=== PATIENT | male | born 1935 | race Caucasian/White ===

== ENCOUNTER 2016-12-06 20:03 | Inpatient (IN) | payer OTHER, BC ==
[~2016-12-06] VITALS: Ht 177.8 cm; Wt 102.5 kg
[~2016-12-06 20:03] MED LIST: ADULT LOW DOSE81 M1 PO; ASPIR 8181 M1 PO; ASPIR-LOW81 MG PO; ASPIRIN81 M2 PO; BENGAY GREASEL113 GM TP; BETIMOL 0.100 DROP/5 RIGHT EYE; CYCLOBENZAPRINE5 MG PO; DEPAKOTE250 MG PO; DESYREL 150 MG150 MG PO; DICLOFENAC SODI50 MG PO; FLEXERIL5 MG PO; GOLD BOND BODY226 GM TP; GOLD BOND MEDI113 GM TP; HYTRIN2 MG PO; LASIX20 MG PO; LIDOCAINE700 MG TD; MIRALAX17 GM PO; MIRALAX255 GM PO; MIRTAZAPINE15 MG PO; MUSCLE RUB CREA85 GM TP; NEURONTIN300 MG PO; PAIN & FEVER500 MG PO; POLYETHYLENE GL17 GM PO; PRILOSEC20 MG PO; REMERON15 M2 PO; ROXICODONE5 MG PO; SENNA PLUS TAB1 EACH PO; SENOKOT S,PE1 TABLET PO; TIMOPTIC-0100 DROP/1 RIGHT EYE; TRAZODONE HCL150 MG PO; TYLENOL EXTRA500 MG PO; VITAMIN D-32000 UNI1 PO; VITAMIN D32000 UNI1 PO; VITAMIN D32000 UNIT PO; VOLTAREN50 MG PO; ZOCOR40 MG PO
[2016-12-06 23:05] LABS: HEMATOCRIT 41.7 % (38.0-50.0); MCHC 33.3 G/DL (30.0-36.0); MCV 93.1 FL (86-99); MEAN PLAT.VOLUME 9.8 uM^3 (9.0-12.4); PLATELET COUNT 223 K/uL (156-360); RBC DIS.WIDTH-CV 12.6 % (11.8-14.6); RBC DIS.WIDTH-SD 43.3 % (39-53); RED BLOOD COUNT 4.48 M/uL (4.00-5.50); WHITE BLOOD COUNT 15.1 K/uL (4.1-10.2)
[2016-12-06 23:14] LABS: CHLORIDE 98 mEq/L (99-109); POTASSIUM 4.7 mEq/L (3.7-5.4); SODIUM 135 mEq/L (136-147)
[2016-12-06 23:16] LABS: GLUCOSE 106 mg/dL (70-99)
[2016-12-06 23:17] LABS: ANION GAP 12 MEQ/L (2-14)
[2016-12-06 23:20] LABS: GFR ESTIMATE (CALCULATED) > 59 mL/min/
[2016-12-06 23:21] LABS: UREA NITROGEN (BUN) 21 mg/dL (9-23)
[2016-12-06 23:24] LABS: ADD MIUA? YES; BILIRUBIN NEGATIVE; BLOOD MODERATE; COLOR YELLOW ((YELLOW)); GLUCOSE (STRIP) NEGATIVE; KETONES 20; LEUKOCYTES LARGE; NITRITE NEGATIVE; PROTEIN (STRIP) 100; SPECIFIC GRAVITY 1.028 (1.000-1.030)
[2016-12-06 23:31] LABS: BACTERIA NONE SEEN /HPF; EPITHELIAL CELLS RARE /HPF; MUCUS TRACE /LPF; RED BLOOD CELLS TNTC /HPF (0-5); UCUL ADDED? YES; WHITE BLOOD CELLS TNTC /HPF (0-5)
[2016-12-06 23:51] LABS: TROP-I INTERPRETATION NEGATIVE; TROPONIN-I < 0.01 ng/mL (0.0-0.30)
[2016-12-07] MEDS ORDERED: VANTIN100 MG PO (00:10)
[2016-12-07] MEDS ORDERED: DULOXETINE HCL60 MG PO (03:25)
[2016-12-07] MEDS ORDERED: GEMFIBROZIL600 MG PO (03:26)
[2016-12-07] MEDS ORDERED: MIRALAX17 GM PO (03:27)
[2016-12-07] MEDS ORDERED: MELATONIN1 MG PO (03:27)
[2016-12-07] MEDS ORDERED: PRILOSEC20 MG PO (03:27)
[2016-12-07] MEDS ORDERED: TERAZOSIN HCL1 MG PO (03:28)
[2016-12-07 03:32] LABS: EOSINOPHIL (%) 0.2 % (0-5); IMMATURE GRANULOCYTE (%) 0.3 % (0.0-0.7); LYMPHOCYTE COUNT 2.5 K/uL (1.0-2.8); MONOCYTE (%) 9.3 % (3-12); MONOCYTE COUNT 1.4 K/uL (0-0.8); NEUTROPHIL (%) 73.6 % (45-76); NEUTROPHIL COUNT 11.3 K/uL (1.8-6.4)
[2016-12-07 05:29] VITALS: BP 139/78
[2016-12-07 07:26] VITALS: BP 121/58
[2016-12-07] MEDS ORDERED: TYLENOL REGULA325 MG PO (14:20)
[2016-12-07] MEDS ORDERED: DEPAKOTE250 MG PO (14:21)
[2016-12-07] MEDS ORDERED: CALMOSEPTINE O120 GM TP (14:30)
[2016-12-07] MEDS ORDERED: GOLD BOND MEDI283 G1 TP (14:32)
[2016-12-07 15:00] VITALS: BP 124/68
[2016-12-07 17:56] VITALS: BP 163/76
[2016-12-07 18:24] VITALS: BP 163/76
[2016-12-07 22:32] VITALS: BP 128/58
[2016-12-08 06:29] LABS: EOSINOPHIL (%) 0.5 % (0-5); EOSINOPHIL COUNT 0.1 K/uL (0-0.3); HEMATOCRIT 41.8 % (38.0-50.0); IMMATURE GRANULOCYTE (%) 0.4 % (0.0-0.7); IMMATURE GRANULOCYTE COUNT 0.1 K/uL; LYMPHOCYTE COUNT 1.6 K/uL (1.0-2.8); MCH 30.6 PG (29.0-34.0); MCHC 32.8 G/DL (30.0-36.0); MCV 93.3 FL (86-99); MEAN PLAT.VOLUME 10.1 uM^3 (9.0-12.4); MONOCYTE (%) 9.1 % (3-12); MONOCYTE COUNT 1.3 K/uL (0-0.8); NEUTROPHIL (%) 78.4 % (45-76); PLATELET COUNT 216 K/uL (156-360); RBC DIS.WIDTH-CV 12.8 % (11.8-14.6); RBC DIS.WIDTH-SD 43.8 % (39-53); RED BLOOD COUNT 4.48 M/uL (4.00-5.50)
[2016-12-08 06:49] LABS: ANION GAP 8 MEQ/L (2-14); CHLORIDE 97 MEQ/L (99-109); GFR ESTIMATE (CALCULATED) > 59 mL/min/; GLUCOSE 87 mg/dL (70-99); POTASSIUM 4.1 MEQ/L (3.7-5.4); SAMPLE HEMOLYSIS CHECK 0; SAMPLE ICTERIC CHECK 0; SAMPLE LIPEMIA CHECK 0; SODIUM 133 MEQ/L (136-147); UREA NITROGEN (BUN) 18 mg/dL (9-23)
[2016-12-08 08:05] VITALS: BP 170/77
[2016-12-08 16:00] VITALS: BP 132/77
[2016-12-08 23:09] VITALS: BP 140/68
[2016-12-09 07:45] VITALS: BP 133/64
[2016-12-09 10:03] LABS: EOSINOPHIL (%) 0.4 % (0-5); HEMATOCRIT 39.6 % (38.0-50.0); IMMATURE GRANULOCYTE (%) 0.5 % (0.0-0.7); IMMATURE GRANULOCYTE COUNT 0.1 K/uL; LYMPHOCYTE COUNT 1.2 K/uL (1.0-2.8); MCH 30.5 PG (29.0-34.0); MCHC 33.3 G/DL (30.0-36.0); MCV 91.5 FL (86-99); MONOCYTE (%) 11.2 % (3-12); MONOCYTE COUNT 1.2 K/uL (0-0.8); NEUTROPHIL (%) 76.5 % (45-76); PLATELET COUNT 197 K/uL (156-360); RBC DIS.WIDTH-CV 12.6 % (11.8-14.6); RBC DIS.WIDTH-SD 42.6 % (39-53); RED BLOOD COUNT 4.33 M/uL (4.00-5.50); WHITE BLOOD COUNT 10.4 K/uL (4.1-10.2)
[2016-12-09 10:37] LABS: ALKALINE PHOSPHATASE 60 IU/L (3-129); ANION GAP 10 MEQ/L (2-14); CHLORIDE 95 MEQ/L (99-109); GFR ESTIMATE (CALCULATED) > 59 mL/min/; GLUCOSE 88 mg/dL (70-99); POTASSIUM 4.4 MEQ/L (3.7-5.4); SAMPLE HEMOLYSIS CHECK 0; SAMPLE ICTERIC CHECK 0; SAMPLE LIPEMIA CHECK 0; SODIUM 130 MEQ/L (136-147); TOTAL BILIRUBIN 0.6 MG/DL (0.0-1.0); UREA NITROGEN (BUN) 16 mg/dL (9-23)
[2016-12-09 16:42] LABS: ANION GAP 7 MEQ/L (2-14); CHLORIDE 95 MEQ/L (99-109); POTASSIUM 4.1 MEQ/L (3.7-5.4); SAMPLE HEMOLYSIS CHECK 0; SAMPLE ICTERIC CHECK 0; SAMPLE LIPEMIA CHECK 0; SODIUM 128 MEQ/L (136-147)
[2016-12-09 16:47] LABS: GFR ESTIMATE (CALCULATED) > 59 mL/min/; GLUCOSE 107 mg/dL (70-99); UREA NITROGEN (BUN) 18 mg/dL (9-23)
[2016-12-09 17:14] VITALS: BP 130/69
[2016-12-10 06:57] LABS: EOSINOPHIL (%) 0.8 % (0-5); EOSINOPHIL COUNT 0.1 K/uL (0-0.3); HEMATOCRIT 38.7 % (38.0-50.0); IMMATURE GRANULOCYTE (%) 0.6 % (0.0-0.7); IMMATURE GRANULOCYTE COUNT 0.1 K/uL; INSTRUMENT ABS NEUTROPHIL CT 5.7 K/uL; LYMPHOCYTE COUNT 1.5 K/uL (1.0-2.8); MCH 30.8 PG (29.0-34.0); MCHC 33.6 G/DL (30.0-36.0); MCV 91.7 FL (86-99); MEAN PLAT.VOLUME 10.6 uM^3 (9.0-12.4); MONOCYTE COUNT 1.3 K/uL (0-0.8); NEUTROPHIL (%) 65.9 % (45-76); NEUTROPHIL COUNT 5.7 K/uL (1.8-6.4); PLATELET COUNT 211 K/uL (156-360); RBC DIS.WIDTH-CV 12.8 % (11.8-14.6); RBC DIS.WIDTH-SD 43.1 % (39-53); RED BLOOD COUNT 4.22 M/uL (4.00-5.50); WHITE BLOOD COUNT 8.6 K/uL (4.1-10.2)
[2016-12-10 07:01] LABS: ALKALINE PHOSPHATASE 60 IU/L (3-129); ANION GAP 8 MEQ/L (2-14); CHLORIDE 95 MEQ/L (99-109); GFR ESTIMATE (CALCULATED) > 59 mL/min/; POTASSIUM 4.1 MEQ/L (3.7-5.4); SAMPLE HEMOLYSIS CHECK 0; SAMPLE ICTERIC CHECK 0; SAMPLE LIPEMIA CHECK 0; SODIUM 131 MEQ/L (136-147); TOTAL BILIRUBIN 0.5 MG/DL (0.0-1.0); UREA NITROGEN (BUN) 16 mg/dL (9-23)
[2016-12-10 07:02] LABS: GLUCOSE 80 mg/dL (70-99)
[2016-12-10 07:29] VITALS: BP 115/67
[2016-12-10 16:19] VITALS: BP 136/64
[2016-12-10 23:30] VITALS: BP 124/62
[2016-12-11 06:32] LABS: EOSINOPHIL (%) 1.8 % (0-5); EOSINOPHIL COUNT 0.1 K/uL (0-0.3); IMMATURE GRANULOCYTE (%) 0.6 % (0.0-0.7); INSTRUMENT ABS NEUTROPHIL CT 3.9 K/uL; LYMPHOCYTE COUNT 1.9 K/uL (1.0-2.8); MCH 30.3 PG (29.0-34.0); MCHC 32.8 G/DL (30.0-36.0); MCV 92.2 FL (86-99); MONOCYTE (%) 15.4 % (3-12); MONOCYTE COUNT 1.1 K/uL (0-0.8); NEUTROPHIL COUNT 3.9 K/uL (1.8-6.4); PLATELET COUNT 224 K/uL (156-360); RBC DIS.WIDTH-CV 12.9 % (11.8-14.6); RBC DIS.WIDTH-SD 43.8 % (39-53); RED BLOOD COUNT 4.23 M/uL (4.00-5.50); WHITE BLOOD COUNT 7.2 K/uL (4.1-10.2)
[2016-12-11 07:40] VITALS: BP 121/69
[2016-12-11 09:43] LABS: CHLORIDE 97 mEq/L (99-109); POTASSIUM 4.2 mEq/L (3.7-5.4); SODIUM 134 mEq/L (136-147)
[2016-12-11 09:46] LABS: GLUCOSE 83 mg/dL (70-99)
[2016-12-11 09:47] LABS: ANION GAP 14 MEQ/L (2-14)
[2016-12-11 09:48] LABS: TOTAL BILIRUBIN 0.3 mg/dL (0.0-1.0)
[2016-12-11 09:49] LABS: ALKALINE PHOSPHATASE 67 IU/L (3-129); GFR ESTIMATE (CALCULATED) > 59 mL/min/
[2016-12-11 09:50] LABS: UREA NITROGEN (BUN) 23 mg/dL (9-23)
[2016-12-11 15:31] VITALS: BP 142/87
[2016-12-11 22:34] VITALS: BP 131/77
[2016-12-12 06:22] LABS: EOSINOPHIL (%) 2.2 % (0-5); EOSINOPHIL COUNT 0.2 K/uL (0-0.3); HEMATOCRIT 38.4 % (38.0-50.0); IMMATURE GRANULOCYTE (%) 0.7 % (0.0-0.7); IMMATURE GRANULOCYTE COUNT 0.1 K/uL; INSTRUMENT ABS NEUTROPHIL CT 3.9 K/uL; LYMPHOCYTE COUNT 1.9 K/uL (1.0-2.8); MCH 30.5 PG (29.0-34.0); MCHC 33.1 G/DL (30.0-36.0); MCV 92.3 FL (86-99); MEAN PLAT.VOLUME 9.9 uM^3 (9.0-12.4); MONOCYTE (%) 13.4 % (3-12); MONOCYTE COUNT 0.9 K/uL (0-0.8); NEUTROPHIL (%) 55.6 % (45-76); NEUTROPHIL COUNT 3.9 K/uL (1.8-6.4); PLATELET COUNT 225 K/uL (156-360); RBC DIS.WIDTH-CV 12.9 % (11.8-14.6); RBC DIS.WIDTH-SD 43.7 % (39-53); RED BLOOD COUNT 4.16 M/uL (4.00-5.50)
[2016-12-12 06:45] LABS: ANION GAP 8 MEQ/L (2-14); CHLORIDE 96 MEQ/L (99-109); GFR ESTIMATE (CALCULATED) > 59 mL/min/; GLUCOSE 78 mg/dL (70-99); POTASSIUM 4.2 MEQ/L (3.7-5.4); SAMPLE HEMOLYSIS CHECK 0; SAMPLE ICTERIC CHECK 0; SAMPLE LIPEMIA CHECK 0; SODIUM 132 MEQ/L (136-147); UREA NITROGEN (BUN) 18 mg/dL (9-23)
[2016-12-12 08:53] VITALS: BP 132/69
[2016-12-12] MEDS ORDERED: BACTRIM,SEPT1 TABLET PO (12:15)
== END 2016-12-12 16:41 | disposition home or self-care (01) | DRG 988 ==
LOC: EME → EDBD 20:03 → EME 20:03 → 5EAST 12-07 03:16 → EDOF 12-07 03:16 → 5EAST 12-07 04:58
PROVIDERS: Emergency Medicine; Hospitalist; Physician Assistant Medical
PROC: 0JQH0ZZ Repair Left Lower Arm Subcutaneous Tissue and Fascia, Open Approach (ICD-10-PCS; principal; 2016-12-07)
DX: N30.00 Acute cystitis without hematuria (principal); E87.1 Hypo-osmolality and hyponatremia; S51.812A Laceration without foreign body of left forearm, initial encounter; S13.4XXA Sprain of ligaments of cervical spine, initial encounter; W19.XXXA Unspecified fall, initial encounter; W22.09XA Striking against other stationary object, initial encounter; Y92.041 Bathroom in boarding-house as the place of occurrence of the external cause; F41.9 Anxiety disorder, unspecified; F32.9 Major depressive disorder, single episode, unspecified; G40.909 Epilepsy, unspecified, not intractable, without status epilepticus; I10 Essential (primary) hypertension; E78.5 Hyperlipidemia, unspecified; G89.29 Other chronic pain; M50.30 Other cervical disc degeneration, unspecified cervical region; M48.02 Spinal stenosis, cervical region; G47.00 Insomnia, unspecified; I25.10 Atherosclerotic heart disease of native coronary artery without angina pectoris; J44.9 Chronic obstructive pulmonary disease, unspecified; J45.909 Unspecified asthma, uncomplicated; H54.8 Legal blindness, as defined in USA; H40.9 Unspecified glaucoma; G30.9 Alzheimer's disease, unspecified; F02.80 Dementia in other diseases classified elsewhere, unspecified severity, without behavioral disturbance, psychotic disturbance, mood disturbance, and anxiety; B96.20 Unspecified Escherichia coli [E. coli] as the cause of diseases classified elsewhere; R32 Unspecified urinary incontinence; E66.9 Obesity, unspecified; Z87.891 Personal history of nicotine dependence; Z79.82 Long term (current) use of aspirin; Z68.34 Body mass index [BMI] 34.0-34.9, adult
CPT/HCPCS: 70450; 71020; 72070; 72125; 72170; 73090; 74176; 80048; 80048 91; 80053; 81003; 83605; 83880; 84295; 84484; 85025; 85027; 87040; 87077; 87086; 87186; 93005; 94760; 97530 GP; 99202; 99281; 99285; J0692; J0696; J1644; J2270; J7030; J7050

== ENCOUNTER 2017-01-12 15:17 | Inpatient (IN) | payer OTHER, BC ==
[~2017-01-12] VITALS: Ht 165.1 cm; Wt 106.0 kg
[~2017-01-12 15:17] MED LIST changes: +BACTRIM,SEPT1 TABLET PO; +CALMOSEPTINE O120 GM TP; +DULOXETINE HCL60 MG PO; +GEMFIBROZIL600 MG PO; +GOLD BOND MEDI283 G1 TP; +MELATONIN1 MG PO; +TERAZOSIN HCL1 MG PO; +TYLENOL REGULA325 MG PO; +VANTIN100 MG PO
[2017-01-12] MEDS ORDERED: TERAZOSIN HCL2 MG PO (17:26)
[2017-01-12] MEDS ORDERED: BENGAY ULTRA S113 GM TP (17:28)
[2017-01-12 17:35] LABS: MCH 30.7 PG (29.0-34.0); MCHC 32.3 G/DL (30.0-36.0); MCV 94.9 FL (86-99); MEAN PLAT.VOLUME 9.1 uM^3 (9.0-12.4); PLATELET COUNT 285 K/uL (156-360); RBC DIS.WIDTH-CV 13.7 % (11.8-14.6); RBC DIS.WIDTH-SD 47.2 % (39-53); RED BLOOD COUNT 4.11 M/uL (4.00-5.50); WHITE BLOOD COUNT 11.9 K/uL (4.1-10.2)
[2017-01-12 17:43] LABS: CHLORIDE 96 mEq/L (99-109); POTASSIUM 4.5 mEq/L (3.7-5.4); SODIUM 133 mEq/L (136-147)
[2017-01-12 17:46] LABS: GLUCOSE 100 mg/dL (70-99)
[2017-01-12 17:47] LABS: ANION GAP 8 MEQ/L (2-14)
[2017-01-12 17:48] LABS: TOTAL BILIRUBIN 0.3 mg/dL (0.0-1.0)
[2017-01-12 17:49] LABS: ALKALINE PHOSPHATASE 91 IU/L (3-129); GFR ESTIMATE (CALCULATED) > 59 mL/min/
[2017-01-12 17:50] LABS: UREA NITROGEN (BUN) 18 mg/dL (9-23)
[2017-01-12 19:16] LABS: CREATINE KINASE 35 IU/L (1-294)
[2017-01-12 20:00] VITALS: BP 170/80
[2017-01-12 20:21] VITALS: BP 170/80
[2017-01-12 23:29] VITALS: BP 165/70
[2017-01-13 04:10] VITALS: BP 132/70
[2017-01-13 05:24] LABS: HEMATOCRIT 34.2 % (38.0-50.0); MCH 30.9 PG (29.0-34.0); MCHC 32.7 G/DL (30.0-36.0); MCV 94.5 FL (86-99); MEAN PLAT.VOLUME 9.4 uM^3 (9.0-12.4); PLATELET COUNT 215 K/uL (156-360); RBC DIS.WIDTH-CV 13.7 % (11.8-14.6); RBC DIS.WIDTH-SD 47.3 % (39-53); RED BLOOD COUNT 3.62 M/uL (4.00-5.50); WHITE BLOOD COUNT 8.7 K/uL (4.1-10.2)
[2017-01-13 05:51] LABS: ANION GAP 8 MEQ/L (2-14); CHLORIDE 100 MEQ/L (99-109); GFR ESTIMATE (CALCULATED) > 59 mL/min/; GLUCOSE 85 mg/dL (70-99); POTASSIUM 3.8 MEQ/L (3.7-5.4); SAMPLE HEMOLYSIS CHECK 0; SAMPLE ICTERIC CHECK 0; SAMPLE LIPEMIA CHECK 0; SODIUM 136 MEQ/L (136-147); UREA NITROGEN (BUN) 18 mg/dL (9-23)
[2017-01-13 08:08] VITALS: BP 142/68
[2017-01-13 11:36] VITALS: BP 120/61
[2017-01-13 16:04] VITALS: BP 125/63
[2017-01-13 19:36] VITALS: BP 124/67
[2017-01-13 23:30] VITALS: BP 131/60
[2017-01-14 03:04] VITALS: BP 133/64
[2017-01-14 05:14] LABS: MCV 95.4 FL (86-99)
[2017-01-14 07:41] VITALS: BP 141/73
[2017-01-14 16:03] VITALS: BP 131/63
[2017-01-14 19:24] VITALS: BP 122/58
[2017-01-14 21:09] VITALS: BP 121/68
[2017-01-14 23:08] VITALS: BP 140/67
[2017-01-15 03:52] VITALS: BP 121/58
[2017-01-15 07:36] VITALS: BP 123/63
[2017-01-15] MEDS ORDERED: TYLENOL REGULA325 MG PO (11:19)
[2017-01-15] MEDS ORDERED: TRAMADOL HCL50 MG PO (11:21)
== END 2017-01-15 13:45 | DRG 552 ==
LOC: EME → EDBD 15:17 → EDOF 18:33 → 3EAST 18:33
PROVIDERS: Emergency Medicine; Hospitalist; Internal Medicine
DX: S12.100A Unspecified displaced fracture of second cervical vertebra, initial encounter for closed fracture (principal); J44.9 Chronic obstructive pulmonary disease, unspecified; I25.10 Atherosclerotic heart disease of native coronary artery without angina pectoris; M48.00 Spinal stenosis, site unspecified; M54.2 Cervicalgia; F02.80 Dementia in other diseases classified elsewhere, unspecified severity, without behavioral disturbance, psychotic disturbance, mood disturbance, and anxiety; G30.9 Alzheimer's disease, unspecified; S01.01XD Laceration without foreign body of scalp, subsequent encounter; E78.5 Hyperlipidemia, unspecified; R91.1 Solitary pulmonary nodule; M25.78 Osteophyte, vertebrae; D72.829 Elevated white blood cell count, unspecified; I10 Essential (primary) hypertension; F41.9 Anxiety disorder, unspecified; F32.9 Major depressive disorder, single episode, unspecified; G40.909 Epilepsy, unspecified, not intractable, without status epilepticus; H91.90 Unspecified hearing loss, unspecified ear; H54.8 Legal blindness, as defined in USA; H40.9 Unspecified glaucoma; G89.29 Other chronic pain; R60.0 Localized edema; N40.0 Benign prostatic hyperplasia without lower urinary tract symptoms; W18.30XD Fall on same level, unspecified, subsequent encounter; Z98.1 Arthrodesis status; Z87.891 Personal history of nicotine dependence; Z91.81 History of falling
CPT/HCPCS: 70450; 72125; 80048; 80053; 81003; 82550; 85014; 85018; 85027; 93005; 97530 GP; 99281; 99285; J1644; J1885; J2270; J7030

== ENCOUNTER 2017-01-26 02:14 | Emergency (ER) | payer OTHER, BC ==
[~2017-01-26] VITALS: Ht 177.8 cm; Wt 103.3 kg
[~2017-01-26 02:14] MED LIST changes: +BENGAY ULTRA S113 GM TP; +TERAZOSIN HCL2 MG PO; +TRAMADOL HCL50 MG PO
[2017-01-26 02:48] LABS: HEMATOCRIT 38.6 % (38.0-50.0); MCH 30.5 PG (29.0-34.0); MCHC 32.1 G/DL (30.0-36.0); MCV 94.8 FL (86-99); MEAN PLAT.VOLUME 9.7 uM^3 (9.0-12.4); PLATELET COUNT 232 K/uL (156-360); RBC DIS.WIDTH-CV 13.9 % (11.8-14.6); RBC DIS.WIDTH-SD 48.6 % (39-53); RED BLOOD COUNT 4.07 M/uL (4.00-5.50); WHITE BLOOD COUNT 6.6 K/uL (4.1-10.2)
[2017-01-26 03:04] LABS: CHLORIDE 100 mEq/L (99-109); POTASSIUM 4.2 mEq/L (3.7-5.4); SODIUM 142 mEq/L (136-147)
[2017-01-26 03:05] LABS: GLUCOSE 95 mg/dL (70-99)
[2017-01-26 03:07] LABS: ANION GAP 12 MEQ/L (2-14)
[2017-01-26 03:09] LABS: GFR ESTIMATE (CALCULATED) > 59 mL/min/
[2017-01-26 03:10] LABS: UREA NITROGEN (BUN) 27 mg/dL (9-23)
[2017-01-26 03:22] LABS: TROP-I INTERPRETATION NEGATIVE; TROPONIN-I < 0.01 ng/mL (0.0-0.30)
[2017-01-26 03:36] LABS: ADD MIUA? NO; BILIRUBIN NEGATIVE; BLOOD NEGATIVE; COLOR YELLOW ((YELLOW)); GLUCOSE (STRIP) 50; KETONES NEGATIVE; LEUKOCYTES NEGATIVE; NITRITE NEGATIVE; PROTEIN (STRIP) 30; SPECIFIC GRAVITY 1.016 (1.000-1.030)
[2017-01-26 06:09] VITALS: BP 140/75
== END 2017-01-26 06:15 ==
LOC: EME 02:14
PROVIDERS: Emergency Medicine
DX: S12.100D Unspecified displaced fracture of second cervical vertebra, subsequent encounter for fracture with routine healing (principal); S22.069D Unspecified fracture of T7-T8 vertebra, subsequent encounter for fracture with routine healing; S32.028D Other fracture of second lumbar vertebra, subsequent encounter for fracture with routine healing; W19.XXXD Unspecified fall, subsequent encounter; F03.90 Unspecified dementia, unspecified severity, without behavioral disturbance, psychotic disturbance, mood disturbance, and anxiety; Z91.81 History of falling; Z87.891 Personal history of nicotine dependence
CPT/HCPCS: 70450; 72125; 72128; 72131; 72192; 80048; 81003; 84484; 85027; 87086; 93005; 99281; 99284

== ENCOUNTER → 2017-02-01 | Outpatient (CLI) | payer OTHER, BC | LOC: RAD 10:09 | DX: S12.100A Unspecified displaced fracture of second cervical vertebra, initial encounter for closed fracture (principal) | CPT/HCPCS: 70200; 72020 ==

== ENCOUNTER 2017-02-12 07:44 | Emergency (ER) | payer OTHER, BC ==
[~2017-02-12] VITALS: Ht 170.2 cm; Wt 102.4 kg
[2017-02-12 08:32] LABS: EOSINOPHIL COUNT 0.1 K/uL (0-0.3); HEMATOCRIT 35.5 % (38.0-50.0); IMMATURE GRANULOCYTE (%) 0.6 % (0.0-0.7); INSTRUMENT ABS NEUTROPHIL CT 3.6 K/uL; LYMPHOCYTE COUNT 2.3 K/uL (1.0-2.8); MCH 30.3 PG (29.0-34.0); MCHC 32.4 G/DL (30.0-36.0); MCV 93.7 FL (86-99); MONOCYTE (%) 13.5 % (3-12); NEUTROPHIL (%) 51.9 % (45-76); NEUTROPHIL COUNT 3.6 K/uL (1.8-6.4); PLATELET COUNT 163 K/uL (156-360); RBC DIS.WIDTH-CV 13.9 % (11.8-14.6); RBC DIS.WIDTH-SD 47.5 % (39-53); RED BLOOD COUNT 3.79 M/uL (4.00-5.50)
[2017-02-12 08:33] LABS: ADD MIUA? YES; BILIRUBIN NEGATIVE; BLOOD NEGATIVE; COLOR YELLOW ((YELLOW)); GLUCOSE (STRIP) NEGATIVE; KETONES NEGATIVE; LEUKOCYTES SMALL; NITRITE NEGATIVE; PROTEIN (STRIP) 30; SPECIFIC GRAVITY 1.012 (1.000-1.030); UROBILINOGEN 0.2 MG/DL (0.2-1.0)
[2017-02-12 08:40] LABS: POINT-OF-CARE METER ID UU14100415
[2017-02-12 08:43] LABS: BACTERIA RARE /HPF; CALCIUM OXALATE CRYSTALS 1+ /HPF; EPITHELIAL CELLS NONE SEEN /HPF; MUCUS TRACE /LPF; UCUL ADDED? NO; WHITE BLOOD CELLS 15-20 /HPF (0-5)
[2017-02-12 09:11] LABS: CHLORIDE 100 mEq/L (99-109); POTASSIUM 3.2 mEq/L (3.7-5.4); SODIUM 141 mEq/L (136-147)
[2017-02-12 09:13] LABS: GLUCOSE 70 mg/dL (70-99)
[2017-02-12 09:14] LABS: ANION GAP 8 MEQ/L (2-14)
[2017-02-12 09:17] LABS: GFR ESTIMATE (CALCULATED) > 59 mL/min/
[2017-02-12 09:18] LABS: UREA NITROGEN (BUN) 25 mg/dL (9-23)
[2017-02-12] MEDS ORDERED: CIPRO500 MG PO (11:20)
[2017-02-12 11:30] VITALS: BP 132/82
[2017-02-12] MEDS ORDERED: ACETAMINOPHEN325 M3 PO (11:39)
== END 2017-02-12 13:33 ==
LOC: EME 07:44
PROVIDERS: Emergency Medicine
DX: N39.0 Urinary tract infection, site not specified (principal); F03.90 Unspecified dementia, unspecified severity, without behavioral disturbance, psychotic disturbance, mood disturbance, and anxiety; W06.XXXA Fall from bed, initial encounter; Y92.122 Bedroom in nursing home as the place of occurrence of the external cause; M50.321 Other cervical disc degeneration at C4-C5 level; M50.322 Other cervical disc degeneration at C5-C6 level; M50.323 Other cervical disc degeneration at C6-C7 level; I10 Essential (primary) hypertension; E78.5 Hyperlipidemia, unspecified; Z87.891 Personal history of nicotine dependence
CPT/HCPCS: 70450; 71010; 72125; 80048; 81003; 82948; 85025; 99281; 99285; J2060; J7030

== ENCOUNTER → 2017-02-21 | Outpatient (CLI) | payer OTHER, BC ==
[~2017-02-21] MED LIST changes: +ACETAMINOPHEN325 M3 PO; +CIPRO500 MG PO
== END ==
LOC: RAD 13:58
DX: S12.100D Unspecified displaced fracture of second cervical vertebra, subsequent encounter for fracture with routine healing (principal)
CPT/HCPCS: 72020

== ENCOUNTER → 2017-03-23 | Outpatient (CLI) | payer OTHER, BC | LOC: RAD 09:52 | DX: M47.896 Other spondylosis, lumbar region (principal); M54.2 Cervicalgia; W19.XXXD Unspecified fall, subsequent encounter | CPT/HCPCS: 72020; 72110 ==

== ENCOUNTER 2017-12-18 05:04 | Inpatient (IN) | payer OTHER, BC ==
[~2017-12-18] VITALS: Ht 177.8 cm; Wt 102.0 kg
[2017-12-18] VITALS (11 sets, daily range): BP systolic 77–125; BP diastolic 49–79
[2017-12-18 06:06] LABS: BASOPHIL (%) 0.2 % (0-1); EOSINOPHIL (%) 3.4 % (0-5); EOSINOPHIL COUNT 0.3 K/uL (0-0.3); HEMATOCRIT 35.4 % (38.0-50.0); HEMOGLOBIN 11.6 G/DL (12.5-16.6); IMMATURE GRANULOCYTE (%) 0.4 % (0.0-0.7); LYMPHOCYTE (%) 23.1 % (15-42); LYMPHOCYTE COUNT 1.9 K/uL (1.0-2.8); MCH 30.9 PG (29.0-34.0); MCHC 32.8 G/DL (30.0-36.0); MCV 94.4 FL (86-99); MONOCYTE (%) 11.9 % (3-12); NEUTROPHIL COUNT 5.1 K/uL (1.8-6.4); RBC DIS.WIDTH-SD 55.4 % (39-53); RED BLOOD COUNT 3.75 M/uL (4.00-5.50); WHITE BLOOD COUNT 8.4 K/uL (4.1-10.2)
[2017-12-18 06:07] LABS: PLATELET COUNT 59 K/uL (156-360)
[2017-12-18 06:11] LABS: INTER. NORMALIZED RATIO 1.2
[2017-12-18 06:14] LABS: PTT 38.8 SEC (25-37)
[2017-12-18 06:17] LABS: CHLORIDE 109 mEq/L (99-109); POTASSIUM 4.5 mEq/L (3.7-5.4); SODIUM 154 mEq/L (136-147)
[2017-12-18 06:19] LABS: GLUCOSE 85 mg/dL (70-99)
[2017-12-18 06:20] LABS: TOTAL PROTEIN 6.6 g/dL (6.4-8.3)
[2017-12-18 06:21] LABS: TOTAL BILIRUBIN 0.6 mg/dL (0.0-1.0)
[2017-12-18 06:23] LABS: ALKALINE PHOSPHATASE 112 IU/L (3-129); CREATININE 1.8 mg/dL (0.6-1.3); GFR ESTIMATE (CALCULATED) 39 mL/min/ (58.99-99999)
[2017-12-18 06:24] LABS: UREA NITROGEN (BUN) 62 mg/dL (9-23)
[2017-12-18 06:25] LABS: AST (GOT) 21 IU/L (2-34)
[2017-12-18 06:26] LABS: ALT (GPT) 15 IU/L (3-49); LIPASE 145 U/L (1.0-51.0)
[2017-12-18 06:27] LABS: TROP-I INTERPRETATION NEGATIVE; TROPONIN-I < 0.01 ng/mL (0.0-0.30)
[2017-12-18 06:30] LABS: APPEARANCE SL.HAZY ((CLEAR)); BILIRUBIN NEGATIVE; BLOOD NEGATIVE; COLOR YELLOW ((YELLOW)); GLUCOSE (STRIP) 50; KETONES NEGATIVE; LEUKOCYTES NEGATIVE; NITRITE NEGATIVE; PROTEIN (STRIP) 30; SPECIFIC GRAVITY 1.016 (1.000-1.030)
[2017-12-18 06:36] LABS: BACTERIA NONE SEEN /HPF; EPITHELIAL CELLS RARE /HPF; HYALINE CASTS 40-50 /LPF; MUCUS TRACE /LPF; RED BLOOD CELLS 0-5 /HPF (0-5); UCUL ADDED? NO; WHITE BLOOD CELLS 0-5 /HPF (0-5)
[2017-12-18] MEDS ORDERED: ZOLOFT25 MG PO (08:41)
[2017-12-18] MEDS ORDERED: NEURONTIN300 MG PO (08:42)
[2017-12-18] MEDS ORDERED: DEPAKOTE250 MG PO (08:46)
[2017-12-18] MEDS ORDERED: DEPAKOTE500 MG PO ×2 (08:47→09:33)
[2017-12-18] MEDS ORDERED: NEURONTIN100 MG PO (08:48)
[2017-12-18] MEDS ORDERED: LASIX20 MG PO (08:49)
[2017-12-18] MEDS ORDERED: CALCIUM 600 +1 EA12 PO (08:51)
[2017-12-18] MEDS ORDERED: SENNA PLUS TAB1 EACH PO (08:52)
[2017-12-18] MEDS ORDERED: VITAMIN D32000 UNI1 PO (08:52)
[2017-12-18] MEDS ORDERED: MIRALAX17 GM PO (08:53)
[2017-12-18] MEDS ORDERED: MICRO-K10 ME2 PO (08:54)
[2017-12-18] MEDS ORDERED: ULTRAM50 MG PO (09:25)
[2017-12-18 12:18] LABS: BASE EXCESS 4.2 mEq/L (-3 to +3); BICARBONATE 30.9 mEq/L (22-26); CARBOXY HGB 1.9 % (0-5); COMMENTS - BLOOD GASES A+C+; DEVICE NC; METHEMOGLOBIN 1.7 % (0-1.5); O2 FLOW 2 L/MIN; PCO2 56 mm Hg (35-45); PO2 75 mm Hg (80-100); SITE RR; pH 7.35 (7.35-7.45)
[2017-12-18 12:19] LABS: TOTAL RESP RATE 14 resp/min
[2017-12-18 12:47] LABS: HEMATOCRIT 34.7 % (38.0-50.0); HEMOGLOBIN 10.8 G/DL (12.5-16.6); MCH 30.1 PG (29.0-34.0); MCHC 31.1 G/DL (30.0-36.0); MCV 96.7 FL (86-99); PLATELET COUNT 70 K/uL (156-360); RBC DIS.WIDTH-CV 16.2 % (11.8-14.6); RBC DIS.WIDTH-SD 57.6 % (39-53); RED BLOOD COUNT 3.59 M/uL (4.00-5.50); WHITE BLOOD COUNT 7.6 K/uL (4.1-10.2)
[2017-12-18 13:13] LABS: INTER. NORMALIZED RATIO 1.2
[2017-12-18 13:21] LABS: CHLORIDE 117 MEQ/L (99-109); CREATININE 1.7 MG/DL (0.6-1.3); GFR ESTIMATE (CALCULATED) 41 mL/min/ (58.99-99999); POTASSIUM 4.1 MEQ/L (3.7-5.4); SODIUM 153 MEQ/L (136-147); UREA NITROGEN (BUN) 53 mg/dL (9-23)
[2017-12-18 13:22] LABS: HEMOGLOBIN 10.9 G/DL (12.5-16.6); MCH 31.2 PG (29.0-34.0); MCHC 32.1 G/DL (30.0-36.0); MCV 97.4 FL (86-99); RBC DIS.WIDTH-CV 16.2 % (11.8-14.6); RED BLOOD COUNT 3.49 M/uL (4.00-5.50); WHITE BLOOD COUNT 7.3 K/uL (4.1-10.2)
[2017-12-18 13:24] LABS: GLUCOSE 49 mg/dL (70-99)
[2017-12-18 13:49] LABS: ABS NEUTROPHIL COUNT 5.7; BAND NEUTROPHILS 2.6 % (0-8.0); EOSINOPHIL ABS CT 0.4; EOSINOPHILS 5.2 % (0-5.0); MONOCYTES 3.5 % (0-9.0); PLAT.SUFFICIENCY DECREASED; SEG.NEUTROPHILS 75.7 % (46.0-76.0); SMUDGE CELLS 0.9
[2017-12-18 14:00] LABS: CREATINE KINASE 23 IU/L (1-294)
[2017-12-18 18:43] LABS: FIBRINOGEN 463 mg/dL (150-450)
[2017-12-18 18:55] LABS: D-DIMER LATEX POSITIVE
[2017-12-18 19:05] LABS: FOLIC ACID (FOLATE) 14.6 NG/ML (5.0-22.0)
[2017-12-18 19:20] LABS: SCHISTOCYTES NONE SEEN
[2017-12-19] VITALS (9 sets, daily range): BP systolic 95–149; BP diastolic 60–84
[2017-12-19 08:04] LABS: BASOPHIL (%) 0.1 % (0-1); EOSINOPHIL (%) 0 % (0-5); HEMATOCRIT 36.5 % (38.0-50.0); HEMOGLOBIN 11.5 G/DL (12.5-16.6); IMMATURE GRANULOCYTE (%) 1.4 % (0.0-0.7); LYMPHOCYTE (%) 14.2 % (15-42); LYMPHOCYTE COUNT 1.4 K/uL (1.0-2.8); MCH 30.2 PG (29.0-34.0); MCHC 31.5 G/DL (30.0-36.0); MCV 95.8 FL (86-99); MONOCYTE (%) 3.6 % (3-12); MONOCYTE COUNT 0.4 K/uL (0-0.8); NEUTROPHIL (%) 80.7 % (45-76); NEUTROPHIL COUNT 8.1 K/uL (1.8-6.4); PLATELET COUNT 69 K/uL (156-360); RBC DIS.WIDTH-CV 16.6 % (11.8-14.6); RBC DIS.WIDTH-SD 57.9 % (39-53); RED BLOOD COUNT 3.81 M/uL (4.00-5.50); WHITE BLOOD COUNT 10.1 K/uL (4.1-10.2)
[2017-12-19 08:59] LABS: ALBUMIN 2.7 G/DL (3.2-4.8); ALKALINE PHOSPHATASE 87 IU/L (3-129); ALT (GPT) 12 IU/L (3-49); AST (GOT) 20 IU/L (2-34); CHLORIDE 117 MEQ/L (99-109); CREATININE 1.4 MG/DL (0.6-1.3); GFR ESTIMATE (CALCULATED) 52 mL/min/ (58.99-99999); POTASSIUM 3.6 MEQ/L (3.7-5.4); SODIUM 154 MEQ/L (136-147); TOTAL BILIRUBIN 0.5 MG/DL (0.0-1.0); TOTAL PROTEIN 6.9 G/DL (6.4-8.3); UREA NITROGEN (BUN) 37 mg/dL (9-23)
[2017-12-19 09:04] LABS: GLUCOSE 93 mg/dL (70-99)
[2017-12-19 13:40] LABS: Heparin Induced Plt Ab Negative (Negative)
[2017-12-19] MEDS ORDERED: DUONEB 2.5-0.5 M3 ML AEROSOL (15:11)
[2017-12-19 18:00] LABS: UFH SRA Result Negative (Negative)
== END 2017-12-19 18:32 | disposition hospice, home (50) | DRG 872 ==
LOC: EME → EDBD 05:04 → EDSEX 05:04 → EME 05:04 → 5EAST 07:43 → EDOF 07:43 → 4WEST 07:43 → ENRESERV 08:57 → 4EAST 11:52 → 4WEST 12:45 → ENRESERV 12:45 → 4WEST 12:46 → ENRESERV 12-19 10:18 → 5EAST 12-19 11:27
PROVIDERS: Emergency Medicine; Internal Medicine; Internal Medicine Medical Oncology; Specialist
DX: A41.9 Sepsis, unspecified organism (principal); N48.1 Balanitis; N17.9 Acute kidney failure, unspecified; E87.0 Hyperosmolality and hypernatremia; D69.59 Other secondary thrombocytopenia; E86.0 Dehydration; I95.9 Hypotension, unspecified; I25.10 Atherosclerotic heart disease of native coronary artery without angina pectoris; J44.9 Chronic obstructive pulmonary disease, unspecified; G40.909 Epilepsy, unspecified, not intractable, without status epilepticus; G30.9 Alzheimer's disease, unspecified; F02.80 Dementia in other diseases classified elsewhere, unspecified severity, without behavioral disturbance, psychotic disturbance, mood disturbance, and anxiety; Z66 Do not resuscitate; Z51.5 Encounter for palliative care; R68.0 Hypothermia, not associated with low environmental temperature; D63.8 Anemia in other chronic diseases classified elsewhere; Z22.322 Carrier or suspected carrier of Methicillin resistant Staphylococcus aureus; I10 Essential (primary) hypertension; E78.5 Hyperlipidemia, unspecified; N40.0 Benign prostatic hyperplasia without lower urinary tract symptoms; H91.90 Unspecified hearing loss, unspecified ear; H54.8 Legal blindness, as defined in USA; R29.6 Repeated falls; M48.061 Spinal stenosis, lumbar region without neurogenic claudication; M48.02 Spinal stenosis, cervical region; H40.9 Unspecified glaucoma; E66.9 Obesity, unspecified; Z68.32 Body mass index [BMI] 32.0-32.9, adult; F32.9 Major depressive disorder, single episode, unspecified; F41.9 Anxiety disorder, unspecified; Z87.440 Personal history of urinary (tract) infections; Z87.891 Personal history of nicotine dependence; Z87.81 Personal history of (healed) traumatic fracture; Z80.9 Family history of malignant neoplasm, unspecified
CPT/HCPCS: 36600; 70450; 71045; 80048 91; 80053; 81003; 82550 91; 82607; 82746; 82803; 82948; 83605; 83690; 84484; 85007; 85025; 85025 91; 85027; 85060; 85378; 85384; 85610; 85730; 86022 90; 87040; 87641; 93005; 94799; 99281; 99285; J1720; J2060; J2543; J3370; J3486; J7030; J7040; J7050; J7120